=== PATIENT | female | born 1965 | race Caucasian/White ===

== ENCOUNTER 2018-04-01 09:20 | Emergency (ER) | payer OTHER ==
[~2018-04-01] VITALS: Ht 162.6 cm; Wt 58.5 kg
[~2018-04-01 09:20] MED LIST: ALPRAZOLAM0.25 MG
== END 2018-04-01 15:02 | disposition home or self-care (01) ==
LOC: ER 09:20
DX: R42 Dizziness and giddiness (principal); F06.4 Anxiety disorder due to known physiological condition

== ENCOUNTER → 2018-12-15 | Emergency (ER) | payer OTHER | END | disposition left against medical advice (07) | LOC: ER 12:03 | DX: Z53.20 Procedure and treatment not carried out because of patient's decision for unspecified reasons (principal) ==

== ENCOUNTER 2019-01-01 17:03 | Emergency (ER) | payer OTHER ==
[~2019-01-01] VITALS: Ht 162.6 cm; Wt 66.7 kg
[2019-01-01] MEDS ORDERED: ZESTRIL2.5 MG (17:19)
== END 2019-01-01 19:55 | disposition home or self-care (01) ==
LOC: ER 17:03
DX: S60.571A Other superficial bite of hand of right hand, initial encounter (principal); W55.01XA Bitten by cat, initial encounter; Y93.89 Activity, other specified; Y92.89 Other specified places as the place of occurrence of the external cause; Y99.8 Other external cause status

== ENCOUNTER 2019-03-23 11:14 | Emergency (ER) | payer OTHER ==
[~2019-03-23] VITALS: Ht 162.6 cm; Wt 68.9 kg
[~2019-03-23 11:14] MED LIST changes: +ZESTRIL2.5 MG
== END 2019-03-23 16:45 | disposition home or self-care (01) ==
LOC: ER 11:14
DX: I10 Essential (primary) hypertension (principal)

== ENCOUNTER 2019-04-21 12:04 | Emergency (ER) | payer OTHER ==
[~2019-04-21] VITALS: Ht 162.6 cm; Wt 69.4 kg
== END 2019-04-21 16:57 | disposition home or self-care (01) ==
LOC: ER 12:04
DX: M54.5 Low back pain (principal); M41.87 Other forms of scoliosis, lumbosacral region

== ENCOUNTER 2019-04-23 16:11 | Emergency (ER) | payer OTHER ==
[~2019-04-23] VITALS: Ht 165.1 cm; Wt 68.5 kg
[2019-04-23] MEDS ORDERED: [UNRECOGNIZED DRUG - OTHER] (17:31)
[2019-04-23] MEDS ORDERED: [UNRECOGNIZED DRUG - OTHER] (17:33)
[2019-04-23] MEDS ORDERED: valium PO (22:27)
== END 2019-04-24 00:08 | disposition home or self-care (01) ==
LOC: ER 16:11
DX: M54.89 Other dorsalgia (principal)

== ENCOUNTER 2019-08-22 16:00 | Emergency (ER) | payer OTHER ==
[~2019-08-22] VITALS: Ht 162.6 cm; Wt 70.8 kg
[~2019-08-22 16:00] MED LIST changes: +[UNRECOGNIZED DRUG - OTHER]; +[UNRECOGNIZED DRUG - OTHER]; +valium PO
== END 2019-08-22 17:32 | disposition home or self-care (01) ==
LOC: ER 16:00
DX: F06.4 Anxiety disorder due to known physiological condition (principal); I10 Essential (primary) hypertension

== ENCOUNTER → 2021-03-10 | Emergency (ER) | payer OTHER ==
[~2021-03-10] VITALS: Ht 162.6 cm; Wt 68.9 kg
[~2021-03-10] MED LIST changes: +ACETAMINOPHEN650 M2 PO; +MEDROLPACK PO; +NORFLEX100MG PO; +[UNRECOGNIZED DRUG - OTHER]
== END | disposition home or self-care (01) ==
LOC: ER 12:11
DX: M25.561 Pain in right knee (principal)

== ENCOUNTER 2021-04-27 10:28 | Outpatient (CLI) | payer OTHER | END 2021-04-27 10:48 | disposition home or self-care (01) | LOC: MAMO-SONO 10:28 | DX: N60.02 Solitary cyst of left breast (principal); R92.1 Mammographic calcification found on diagnostic imaging of breast; Z12.31 Encounter for screening mammogram for malignant neoplasm of breast; R07.89 Other chest pain; J44.9 Chronic obstructive pulmonary disease, unspecified ==

== ENCOUNTER 2022-02-13 11:35 | Emergency (ER) | payer OTHER ==
[~2022-02-13] VITALS: Ht 162.6 cm; Wt 61.7 kg
[2022-02-13] MEDS ORDERED: COZAAR25 MG PO (11:48)
== END 2022-02-13 12:27 | disposition home or self-care (01) ==
LOC: ER 11:35
DX: S89.92XA Unspecified injury of left lower leg, initial encounter (principal); X58.XXXA Exposure to other specified factors, initial encounter; Y93.9 Activity, unspecified; Y92.9 Unspecified place or not applicable; Y99.9 Unspecified external cause status; Z88.6 Allergy status to analgesic agent

== ENCOUNTER 2023-05-16 10:16 | Emergency (ER) | payer OTHER ==
[~2023-05-16] VITALS: Ht 162.6 cm; Wt 54.9 kg
[~2023-05-16 10:16] MED LIST changes: +COZAAR25 MG PO
[2023-05-16] MEDS ORDERED: SIMVASTATIN5 MG (10:51)
[2023-05-16] MEDS ORDERED: ATIVAN0.5 M1 PO (10:51)
== END 2023-05-16 13:52 | disposition home or self-care (01) ==
LOC: ER 10:16
DX: L03.116 Cellulitis of left lower limb (principal); Z88.6 Allergy status to analgesic agent

== ENCOUNTER 2023-09-05 12:51 | Emergency (ER) | payer OTHER ==
[~2023-09-05] VITALS: Ht 162.6 cm; Wt 56.7 kg
[~2023-09-05 12:51] MED LIST changes: +ATIVAN0.5 M1 PO; +SIMVASTATIN5 MG
== END 2023-09-05 16:34 | disposition home or self-care (01) ==
LOC: ER 12:51
DX: L73.9 Follicular disorder, unspecified (principal); I10 Essential (primary) hypertension; Z88.6 Allergy status to analgesic agent

== ENCOUNTER 2024-06-24 18:42 | Emergency (ER) | payer OTHER ==
[~2024-06-24] VITALS: Ht 162.6 cm; Wt 57.6 kg
[2024-06-24] MEDS ORDERED: MILLIPRED5 MG PO (20:02)
== END 2024-06-24 21:08 | disposition home or self-care (01) ==
LOC: ER 18:44
DX: N61.0 Mastitis without abscess (principal); I10 Essential (primary) hypertension; Z88.6 Allergy status to analgesic agent

== ENCOUNTER 2024-07-01 14:50 | Emergency (ER) | payer OTHER ==
[~2024-07-01] VITALS: Ht 167.6 cm; Wt 61.2 kg
[~2024-07-01 14:50] MED LIST changes: +MILLIPRED5 MG PO
[2024-07-01] MEDS ORDERED: AMOX-CLAV 875-1 EAC1 PO (15:39)
== END 2024-07-01 16:49 | disposition home or self-care (01) ==
LOC: ER 14:52
DX: L53.9 Erythematous condition, unspecified (principal); I10 Essential (primary) hypertension; Z88.6 Allergy status to analgesic agent

== ENCOUNTER 2024-07-25 10:37 | Emergency (ER) | payer OTHER ==
[~2024-07-25] VITALS: Ht 162.6 cm; Wt 57.6 kg
[~2024-07-25 10:37] MED LIST changes: +AMOX-CLAV 875-1 EAC1 PO
[2024-07-25 11:43] VITALS: BP 128/85; O2SAT 100
[2024-07-25] MEDS ORDERED: ANTIFUNGAL113 GM TOP (12:20)
== END 2024-07-25 12:40 | disposition home or self-care (01) ==
LOC: ER 10:37
DX: L30.8 Other specified dermatitis (principal); Z88.6 Allergy status to analgesic agent

== ENCOUNTER 2024-07-25 10:51 | Outpatient (CLI) | payer OTHER ==
[2024-07-25] MEDS ORDERED: ANTIFUNGAL113 GM TOP (12:20)
== END 2024-07-25 10:58 | disposition home or self-care (01) ==
LOC: SONOGRAMA 10:51
PROVIDERS: ATTEND General Practice
DX: N61.0 Mastitis without abscess (principal)

== ENCOUNTER 2024-08-15 13:55 | Outpatient (CLI) | payer OTHER ==
[~2024-08-15 13:55] MED LIST changes: +ANTIFUNGAL113 GM TOP
== END 2024-08-15 14:02 | disposition home or self-care (01) ==
LOC: SONOGRAMA 13:55
PROVIDERS: ATTEND Obstetrics & Gynecology
DX: R10.2 Pelvic and perineal pain (principal); N84.0 Polyp of corpus uteri; D25.0 Submucous leiomyoma of uterus

== ENCOUNTER 2024-09-06 07:46 | Outpatient (CLI) | payer OTHER | END 2024-09-06 07:55 | disposition home or self-care (01) | LOC: MAMO-SONO 07:46 | PROVIDERS: ATTEND Obstetrics & Gynecology | DX: Z12.31 Encounter for screening mammogram for malignant neoplasm of breast (principal); R94.5 Abnormal results of liver function studies ==

== ENCOUNTER → 2025-07-03 | Emergency (ER) | payer OTHER ==
[~2025-07-03] VITALS: Ht 162.6 cm; Wt 61.2 kg
[~2025-07-03] MED LIST changes: +ATIVAN1 M1 PO
[2025-07-03 13:53] LABS: BASO % 0.6 % (0.1-1.2); EOS # 0.09 (0.04-0.54); EOS % 1.7 % (0.7-7.0); LYMPH # 1.97 (1.18-3.74); LYMPH % 36.8 % (19.3-53.1); MEAN PLATELET VOLUME 9.30 fl (9.4-12.4); MONO # 0.37 (0.24-0.82); MONO % 6.9 % (4.7-12.5); NEUT # 2.88 (1.56-6.13); NEUT % 53.8 % (34.0-71.1); RED CELL DISTRIBUTION WIDTH 11.7 % (11.6-14.4)
[2025-07-03 14:24] LABS: BUN CREA RATIO 33.0 (7.0-25.0); CREATININE SERUM 0.58 mg/dL (0.55-1.02); GFR 106.04; GLUCOSE FASTING 89.0 mg/dL (65-100); OSMOLALITY SERUM 276.0 MOSM/KG (275-295)
== END | disposition home or self-care (01) ==
LOC: ER 12:17
PROVIDERS: Emergency Medicine
DX: R07.89 Other chest pain (principal); R53.1 Weakness; I10 Essential (primary) hypertension; Z88.6 Allergy status to analgesic agent